=== PATIENT | female | born 1950 | race African-American/Black ===

== ENCOUNTER 2016-10-31 21:48 | Emergency (ER) | payer MEDICARE ==
[~2016-10-31] VITALS: Ht 165.1 cm; Wt 132.0 kg
[~2016-10-31 21:48] MED LIST: ASPI325T4 PO; ATOR10TA9 PO; CHOL500050 PO; ESTR1PAT25 TP; FLUO20CA8 PO; FOLI1TAB7 PO; LEVO50TA5 PO; LOSA100T6 PO; MAGN500C PO; MULT-26 PO; TRAM50TA2 PO
[2016-10-31 21:49] VITALS: BP 155/80
[2016-10-31] MEDS ORDERED: METHOCARBAMOL 750 MG TABLET ONE (23:14)
[2016-10-31] MEDS ORDERED: KETOROLAC 30 MG/1 ML ONE (23:14)
[2016-10-31] MEDS ORDERED: KETOROLAC 30 MG/1 ML IM ONE (23:30)
[2016-10-31] MEDS ORDERED: METHOCARBAMOL 750 MG TABLET PO ONE (23:30)
== END 2016-10-31 23:47 | disposition home or self-care (01) ==
LOC: ED 23:41
DX: M62.838 Other muscle spasm (principal); I10 Essential (primary) hypertension; E78.5 Hyperlipidemia, unspecified; E78.00 Pure hypercholesterolemia, unspecified
CPT/HCPCS: 73030; 96372; 99284; J1885